=== PATIENT | male | born 1945 | race African-American/Black ===

== ENCOUNTER 2023-02-02 10:27 | Inpatient (IN) | payer MEDICARE ==
[2023-02-02] VITALS (23 sets, daily range): BP systolic 81–119; BP diastolic 38–73
[~2023-02-02] VITALS: Ht 172.7 cm; Wt 58.1 kg
[2023-02-02] MEDS ORDERED: PIPERACILLIN/TAZ 3.375G PREMIX 50 ML IV ONE (10:45)
[2023-02-02] MEDS ORDERED: VANCOMYCIN 1G PREMIX 200 ML IV ONE (10:45)
[2023-02-02] MEDS ORDERED: SODIUM CHLORIDE 0.9% 1000ML BAG (SEPSIS BOLUS) IV ONE (10:45)
[2023-02-02 11:03] LABS: HEMATOCRIT. 40.1 % (42.0-52.0); HEMOGLOBIN. 13.8 g/dL (14.0-18.0); MEAN CORPUSCULAR HEMOGLOBIN 35.7 pg (28.0-32.0); MEAN CORPUSCULAR VOLUME 103.9 fL (80.0-94.0); MEAN PLATELET VOLUME 7.6 fl (7.4-10.4); PLATELET 213 x1000/uL (130-400); RED BLOOD CELL COUNT 3.86 mill/uL (4.7-6.1); RED CELL DISTRIBUTION WIDTH 16.5 % (11.6-14.6)
[2023-02-02 11:11] LABS: CHLORIDE 110 mEq/L (98-107)
[2023-02-02 11:46] LABS: PLATELET ESTIMATE NORMAL
[2023-02-02 11:53] LABS: CLARITY URINE CLOUDY (CLEAR); COLOR URINE YELLOW (YELLOW); KETONES URINE NEGATIVE (NEGATIVE); LEUKOCYTE ESTERASE URINE 3+ (NEGATIVE); NITRITE URINE POSITIVE (NEGATIVE); OCCULT BLOOD URINE 1+ (NEGATIVE); PROTEIN URINE 1+ (NEGATIVE); SPECIFIC GRAVITY URINE 1.009 (1.005-1.030); UROBILINOGEN URINE 0.2 E.U./dL (0.2-1.0)
[2023-02-02 12:28] LABS: INR 1.3; PROTHROMBIN TIME 13.6 sec (9.6-11.0)
[2023-02-02] MEDS ORDERED: NOREPINEPHRINE 8MG/250ML PMX 250 ML IV ONE (15:45)
[2023-02-02] MEDS: NOREPINEPHRINE 8 MG in DEXTROSE 5% WATER 250 ML IV PRN (16:37)
[2023-02-02] MEDS ORDERED: MAGNESIUM/ALUMINUM HYDROXIDE/SIMETHICONE 30ML UDC PO PRN (20:00)
[2023-02-02] MEDS ORDERED: ONDANSETRON HCL 4MG/2ML INJ IV PRN (20:00)
[2023-02-02] MEDS ORDERED: ACETAMINOPHEN 325MG TABLET PO PRN (20:00)
[2023-02-02] MEDS ORDERED: NOREPINEPHRINE 8 MG in DEXT 5% WATER 242 ML IV PRN (20:00)
[2023-02-02] MEDS ORDERED: ZOLPIDEM TARTRATE 5MG TABLET PO PRN (20:00)
[2023-02-02] MEDS ORDERED: DIPHENHYDRAMINE 50MG/ML VIAL IV PRN (20:00)
[2023-02-02] MEDS ORDERED: MEROPENEM 1,000 MG in SODIUM CHLORIDE 0.9% 100 ML IV SCH (20:00)
[2023-02-02] MEDS: OMEPRAZOLE 20MG CAPSULE EXTENDED RELEASE PO SCH (20:45)
[2023-02-02] MEDS: SODIUM CHLORIDE 0.9% 1,000 ML IV SCH (20:45)
[2023-02-02] MEDS ORDERED: ENOXAPARIN 40MG/0.4ML SYR SUBCUT SCH (21:00)
[2023-02-02] MEDS: MEROPENEM-0.9% SODIUM CHLORIDE 50 ML IV SCH (21:09)
[2023-02-03] VITALS (91 sets, daily range): BP systolic 58–141; BP diastolic 36–83
[2023-02-03] MEDS: NOREPINEPHRINE 8 MG in DEXTROSE 5% WATER 250 ML IV PRN ×2 (05:12→14:28)
[2023-02-03 05:59] LABS: HEMATOCRIT. 37.8 % (42.0-52.0); HEMOGLOBIN. 12.7 g/dL (14.0-18.0); MEAN CORPUSCULAR HEMOGLOBIN 35.4 pg (28.0-32.0); MEAN CORPUSCULAR VOLUME 105.1 fL (80.0-94.0); MEAN PLATELET VOLUME 8.9 fl (7.4-10.4); PLATELET 192 x1000/uL (130-400); RED CELL DISTRIBUTION WIDTH 16.9 % (11.6-14.6)
[2023-02-03] MEDS: SODIUM CHLORIDE 0.9% 1,000 ML IV SCH ×2 (08:26→16:00)
[2023-02-03] MEDS: FINASTERIDE 5MG TABLET PO SCH (08:27)
[2023-02-03] MEDS: TAMSULOSIN HCL 0.4MG SR CAPSULE PO SCH (08:27)
[2023-02-03] MEDS: OMEPRAZOLE 20MG CAPSULE EXTENDED RELEASE PO SCH ×2 (08:28→21:01)
[2023-02-03 08:31] LABS: PLATELET ESTIMATE NORMAL
[2023-02-03] MEDS: MEROPENEM-0.9% SODIUM CHLORIDE 50 ML IV SCH ×2 (09:00→21:01)
[2023-02-03] MEDS ORDERED: MAGNESIUM 2 G PREMIX 50 ML IV NR (10:00)
[2023-02-03] MEDS ORDERED: LIDOCAINE HCL 1% 30ML VIAL (10MG/ML) ONE (10:41)
[2023-02-03] MEDS ORDERED: IPRATROPIUM/ALBUTEROL 0.5-3(2.5)MG/3ML NEB HHN PRN (10:45)
[2023-02-03] MEDS ORDERED: SODIUM PHOS,M-BASIC-D-BASIC 20 MM in DEXT 5% WATER 243.3333 ML IV NR (12:00)
[2023-02-03] MEDS ORDERED: LEVOFLOXACIN 500MG PREMIX 100 ML IV NR (17:00)
[2023-02-03] MEDS: ACETAMINOPHEN 325MG TABLET PO PRN (18:31)
[2023-02-04] VITALS (88 sets, daily range): BP systolic 83–121; BP diastolic 41–75
[2023-02-04] MEDS: NOREPINEPHRINE 8 MG in DEXTROSE 5% WATER 250 ML IV PRN (00:03)
[2023-02-04] MEDS: SODIUM CHLORIDE 0.9% 1,000 ML IV SCH ×3 (00:04→21:49)
[2023-02-04] MEDS: ACETAMINOPHEN 325MG TABLET PO PRN (04:13)
[2023-02-04 04:31] LABS: HEMOGLOBIN. 11.2 g/dL (14.0-18.0); MEAN CORPUSCULAR HEMOGLOBIN 35.1 pg (28.0-32.0); MEAN CORPUSCULAR VOLUME 103.4 fL (80.0-94.0); MEAN PLATELET VOLUME 8.6 fl (7.4-10.4); PLATELET 138 x1000/uL (130-400); RED BLOOD CELL COUNT 3.19 mill/uL (4.7-6.1)
[2023-02-04 04:50] LABS: CHLORIDE 114 mEq/L (98-107)
[2023-02-04 05:01] LABS: PHOSPHORUS 2.6 mg/dL (2.5-4.9)
[2023-02-04] MEDS: TAMSULOSIN HCL 0.4MG SR CAPSULE PO SCH (08:34)
[2023-02-04] MEDS: OMEPRAZOLE 20MG CAPSULE EXTENDED RELEASE PO SCH ×2 (08:34→21:49)
[2023-02-04] MEDS: MEROPENEM-0.9% SODIUM CHLORIDE 50 ML IV SCH (08:35)
[2023-02-04] MEDS: FINASTERIDE 5MG TABLET PO SCH (08:35)
[2023-02-04 09:01] LABS: PLATELET ESTIMATE NORMAL
[2023-02-04] MEDS: MIDODRINE HCL 5MG TABLET PO SCH ×3 (09:39→21:49)
[2023-02-04] MEDS: LEVOFLOXACIN 250MG TABLET PO SCH (15:43)
[2023-02-04] MEDS: CEFAZOLIN 1000MG PREMIX 50 ML IV SCH ×2 (15:43→23:47)
[2023-02-05] VITALS (34 sets, daily range): BP systolic 85–131; BP diastolic 36–78
[2023-02-05 05:43] LABS: BASOPHILS % 0.1 % (0.0-2.0); EOSINOPHILS % 0.6 % (0.0-5.0); HEMOGLOBIN. 11.1 g/dL (14.0-18.0); LYMPHOCYTES % 7.1 % (20.0-50.0); MEAN CORPUSCULAR HEMOGLOBIN 35.3 pg (28.0-32.0); MEAN CORPUSCULAR VOLUME 104.6 fL (80.0-94.0); MEAN PLATELET VOLUME 9.1 fl (7.4-10.4); MONOCYTES % 3.3 % (2.0-8.0); NEUTROPHILS % 88.9 % (40.0-76.0); PLATELET 132 x1000/uL (130-400); RED BLOOD CELL COUNT 3.15 mill/uL (4.7-6.1); RED CELL DISTRIBUTION WIDTH 16.5 % (11.6-14.6)
[2023-02-05] MEDS: MIDODRINE HCL 5MG TABLET PO SCH ×3 (06:44→21:08)
[2023-02-05] MEDS: CEFAZOLIN 1000MG PREMIX 50 ML IV SCH ×3 (06:44→21:08)
[2023-02-05 06:45] LABS: CHLORIDE 114 mEq/L (98-107)
[2023-02-05] MEDS: SODIUM CHLORIDE 0.9% 1,000 ML IV SCH (08:00)
[2023-02-05] MEDS: FINASTERIDE 5MG TABLET PO SCH (09:17)
[2023-02-05] MEDS: OMEPRAZOLE 20MG CAPSULE EXTENDED RELEASE PO SCH ×2 (09:17→21:08)
[2023-02-05] MEDS: TAMSULOSIN HCL 0.4MG SR CAPSULE PO SCH (09:17)
[2023-02-05] MEDS: LEVOFLOXACIN 250MG TABLET PO SCH (09:20)
[2023-02-06 04:00] VITALS: BP 109/59
[2023-02-06] MEDS: SODIUM CHLORIDE 0.9% 1,000 ML IV SCH (04:12)
[2023-02-06] MEDS: CEFAZOLIN 1000MG PREMIX 50 ML IV SCH ×3 (06:35→21:22)
[2023-02-06] MEDS: MIDODRINE HCL 5MG TABLET PO SCH ×2 (06:35→13:49)
[2023-02-06] MEDS: OMEPRAZOLE 20MG CAPSULE EXTENDED RELEASE PO SCH (06:35)
[2023-02-06 08:00] VITALS: BP 117/64
[2023-02-06] MEDS: TAMSULOSIN HCL 0.4MG SR CAPSULE PO SCH (09:08)
[2023-02-06] MEDS: FINASTERIDE 5MG TABLET PO SCH (09:09)
[2023-02-06] MEDS: LEVOFLOXACIN 250MG TABLET PO SCH (10:27)
[2023-02-06 12:00] VITALS: BP 126/72
[2023-02-06] MEDS ORDERED: IPRATROPIUM/ALBUTEROL 0.5-3(2.5)MG/3ML NEB HHN PRN (13:45)
[2023-02-06] MEDS ORDERED: ALBUTEROL (0.083%) 2.5MG/3ML NEB HHN PRN (14:00)
[2023-02-06] MEDS ORDERED: IPRATROPIUM BROMIDE (0.02%) 0.5MG/2.5ML NEB HHN PRN (14:00)
[2023-02-06 16:00] VITALS: BP 96/54
[2023-02-06 20:00] VITALS: BP 112/61
[2023-02-06] MEDS ORDERED: *PATIENT'S OWN MEDICATION STORAGE XX SCH (21:00)
[2023-02-07] VITALS: BP 110/58
[2023-02-07 04:00] VITALS: BP 112/62
[2023-02-07] MEDS: CEFAZOLIN 1000MG PREMIX 50 ML IV SCH (06:03)
[2023-02-07] MEDS ORDERED: FAMOTIDINE 20MG TABLET PO SCH (07:20)
[2023-02-07 08:00] VITALS: BP 122/74
[2023-02-07] MEDS: TAMSULOSIN HCL 0.4MG SR CAPSULE PO SCH (09:13)
[2023-02-07] MEDS: FINASTERIDE 5MG TABLET PO SCH (09:13)
[2023-02-07 12:00] VITALS: BP 115/64
[2023-02-07] MEDS: LEVOFLOXACIN 250MG TABLET PO SCH (12:42)
[2023-02-07 13:19] VITALS: BP 115/64
== END 2023-02-07 14:55 | disposition home health service (06) | DRG 871 ==
LOC: ER 10:45 → EDBEDREQTM 11:42 → EDBEDREQ 11:42 → EDBEDREQSVC 15:41 → ENRESERV 15:45 → CVICU 18:37 → 6EST 02-05 10:58
PROVIDERS: ADMIT Internal Medicine; ATTEND Internal Medicine
PROC: 02HV33Z Insertion of Infusion Device into Superior Vena Cava, Percutaneous Approach (ICD-10-PCS; principal; 2023-02-03)
PROC: B548ZZA Ultrasonography of Superior Vena Cava, Guidance (ICD-10-PCS; 2023-02-03)
PROC: 5A1935Z Respiratory Ventilation, Less than 24 Consecutive Hours (ICD-10-PCS; 2023-02-05)
PROC: 0BH17EZ Insertion of Endotracheal Airway into Trachea, Via Natural or Artificial Opening (ICD-10-PCS; 2023-02-05)
DX: A41.50 Gram-negative sepsis, unspecified (principal); N17.0 Acute kidney failure with tubular necrosis; R65.21 Severe sepsis with septic shock; N39.0 Urinary tract infection, site not specified; Z68.1 Body mass index [BMI] 19.9 or less, adult; E44.1 Mild protein-calorie malnutrition; E87.20 Acidosis, unspecified; N40.1 Benign prostatic hyperplasia with lower urinary tract symptoms; I10 Essential (primary) hypertension; D53.9 Nutritional anemia, unspecified; E83.39 Other disorders of phosphorus metabolism; E83.42 Hypomagnesemia; E83.51 Hypocalcemia; E87.8 Other disorders of electrolyte and fluid balance, not elsewhere classified; R33.8 Other retention of urine
CPT/HCPCS: 36415; 36573; 71045; 80048; 80053; 81003; 83605; 83735; 84100; 84145; 84153; 84484; 85025; 87077; 87186; 93005; 97161; 97165; 99291; C1725; J0690; J1956; J2185; J2543; J3370; J3475; J3490; J7030; J7060; A4315; G0103

== ENCOUNTER 2025-10-20 18:23 | Emergency (ER) | payer MEDICARE ==
[~2025-10-20] VITALS: Ht 177.8 cm; Wt 61.0 kg
[2025-10-20 18:31] VITALS: O2SAT 98
[2025-10-20] MEDS: ACETAMINOPHEN 325MG TABLET PO ONE ×2 (19:06→23:32)
[2025-10-20] MEDS ORDERED: TOPUD MT (22:43)
[2025-10-20] MEDS ORDERED: LIDO-53 TP (22:43)
[2025-10-20 23:38] VITALS: BP 115/58; PULSE 64; RESP 16; TEMP 36.6; O2SAT 100
== END 2025-10-20 23:39 | disposition home or self-care (01) ==
LOC: ER 18:23
DX: M54.50 Low back pain, unspecified (principal); M25.532 Pain in left wrist; I10 Essential (primary) hypertension; V19.9XXA Pedal cyclist (driver) (passenger) injured in unspecified traffic accident, initial encounter; Y93.55 Activity, bike riding; Y92.89 Other specified places as the place of occurrence of the external cause; Y99.8 Other external cause status
CPT/HCPCS: 72131; 99284